=== PATIENT | female | born 1955 ===

== ENCOUNTER 2024-05-05 05:20 | Inpatient (IN) | payer OTHER ==
[2024-04-25 16:14] VITALS: BP 147/73
[~2024-05-05] VITALS: Ht 170.2 cm; Wt 93.0 kg
[2024-05-05] MEDS ORDERED: 0.9 % SODIUM CHLORIDE 1,000 ML IV SCH (10:45)
[2024-05-05] MEDS ORDERED: PROMETHAZINE HCL 50 MG/ML AMPUL IM PRN (10:45)
[2024-05-05] MEDS ORDERED: ENALAPRILAT DIHYDRATE 1.25 MG/ML VIAL IV PRN (10:45)
[2024-05-05] MEDS ORDERED: MEDROLPACK PO (11:04)
[2024-05-05] MEDS ORDERED: PERCOCET 5-3251 EACH PO (11:04)
[2024-05-05] MEDS ORDERED: AMOX-CLAV 875-1 EACH PO (11:05)
[2024-05-05] MEDS ORDERED: GABAPENTIN100 M2 PO (11:05)
[2024-05-05] MEDS ORDERED: NEURONTIN800 MG PO (11:05)
[2024-05-05] MEDS ORDERED: CEFAZOLIN SODIUM 2,000 MG in 0.9 % SODIUM CHLORIDE 100 ML IV ONE (12:30)
[2024-05-05] MEDS ORDERED: METHYLPREDNISOLONE SOD SUCC 125 MG VIAL IV ONE ×2 (12:30)
[2024-05-05] MEDS ORDERED: METHYLPREDNISOLONE ACETATE 80 MG/ML VIAL IU ONE ×2 (12:30)
[2024-05-05] MEDS ORDERED: VANCOMYCIN HCL 1,000 MG VIAL IR ONE (12:30)
[2024-05-05] MEDS ORDERED: TRANEXAMIC ACID 1,000 MG in 0.9 % SODIUM CHLORIDE 100 ML IV ONE (12:30)
[2024-05-05] MEDS ORDERED: VANCOMYCIN HCL 1,000 MG in 0.9 % SODIUM CHLORIDE 250 ML IV ONE (12:30)
[2024-05-05] MEDS ORDERED: DOCUSATE SODIUM 100MG CAP PO SCH (13:00)
[2024-05-05] MEDS ORDERED: MORPHINE SULFATE 4 MG/ML VIAL IV SCH (13:00)
[2024-05-05] MEDS ORDERED: MORPHINE SULFATE 4 MG/ML VIAL IV ONE ×2 (14:00→14:45)
[2024-05-05] MEDS ORDERED: CEFAZOLIN SODIUM 1,000 MG in 0.9 % SODIUM CHLORIDE 50 ML IV SCH (17:00)
[2024-05-05] MEDS ORDERED: FAMOtidine 20 MG TABLET PO SCH (17:00)
[2024-05-05] MEDS ORDERED: METHYLPREDNISOLONE SOD SUCC 125 MG VIAL IV SCH (17:00)
[2024-05-05 17:53] VITALS: BP 147/73; O2SAT 96
[2024-05-05 20:00] VITALS: BP 143/77; O2SAT 99
[2024-05-05] MEDS ORDERED: AMLODIPINE BESYLATE 2.5 MG TABLET PO SCH (21:00)
[2024-05-05] MEDS ORDERED: GABAPENTIN 800 MG TABLET PO SCH (21:00)
[2024-05-05] MEDS ORDERED: VANCOMYCIN HCL 1,000 MG in 0.9 % SODIUM CHLORIDE 250 ML IV SCH (21:00)
[2024-05-06] VITALS: BP 138/71; O2SAT 99
[2024-05-06] MEDS ORDERED: SODIUM CHLORIDE 0.45 % 1,000 ML IV SCH
[2024-05-06 04:00] VITALS: BP 140/74; O2SAT 98
[2024-05-06] MEDS ORDERED: OxyCODONE HCL/APAP UD (PERCOCET) PO PRN (06:01)
[2024-05-06 06:33] LABS: HEMATOCRIT 33.1 % (36.0-45.00); HEMOGLOBIN 11.5 g/dL (12.0-15.00); MEAN CORPUSCULAR HEMOGLOBIN 32.2 pg (27.00-32.0); MEAN CORPUSCULAR HGB CONC 34.6 g/dl (32.0-36.0); PLATELET COUNT 244 K/uL (150-450); RED BLOOD COUNT 3.56 M/uL (4.00-6.00); RED CELL DISTRIBUTION WIDTH 12.9 % (11.5-14.5)
[2024-05-06 07:19] LABS: CALCIUM 8.7 mg/dL (8.5-10.1); CREATININE SERUM 0.59 mg/dL (0.55-1.02); GFR 101.36; POTASSIUM 3.63 mEq/L (3.5-5.1)
[2024-05-06 08:41] VITALS: BP 123/75; O2SAT 98
[2024-05-06] MEDS ORDERED: METOPROLOL SUCCINATE 50 MG TAB.SR.24H PO SCH (09:00)
[2024-05-06] MEDS ORDERED: TAMSULOSIN HCL 0.4 MG CAP PO SCH (09:00)
[2024-05-06] MEDS ORDERED: METHYLPREDNISOLONE SOD SUCC 125 MG VIAL IV NR (11:18)
[2024-05-06 12:24] VITALS: BP 134/61; O2SAT 98
== END 2024-05-06 13:48 | disposition home or self-care (01) | DRG 455 ==
LOC: CIR.AMB 05:20 → O/R 15:21 → PED 15:45
PROVIDERS: ADMIT Orthopaedic Surgery Orthopaedic Surgery of the Spine; ATTEND Orthopaedic Surgery Orthopaedic Surgery of the Spine
PROC: 0SG1070 Fusion of 2 or more Lumbar Vertebral Joints with Autologous Tissue Substitute, Anterior Approach, Anterior Column, Open Approach (ICD-10-PCS; 2024-05-05)
PROC: XRGC0R7 Fusion of 2 or more Lumbar Vertebral Joints using Custom-Made Anatomically Designed Interbody Fusion Device, Open Approach, New Technology Group 7 (ICD-10-PCS; 2024-05-05)
PROC: 0ST20ZZ Resection of Lumbar Vertebral Disc, Open Approach (ICD-10-PCS; 2024-05-05)
PROC: 0QB30ZZ Excision of Left Pelvic Bone, Open Approach (ICD-10-PCS; 2024-05-05)
PROC: 07DR0ZZ Extraction of Iliac Bone Marrow, Open Approach (ICD-10-PCS; 2024-05-05)
PROC: 4A1104G Monitoring of Peripheral Nervous Electrical Activity, Intraoperative, Open Approach (ICD-10-PCS; 2024-05-05)
PROC: 0SG10K1 Fusion of 2 or more Lumbar Vertebral Joints with Nonautologous Tissue Substitute, Posterior Approach, Posterior Column, Open Approach (ICD-10-PCS; principal; 2024-05-05 13:30)
DX: M51.36 Other intervertebral disc degeneration, lumbar region (principal); M43.16 Spondylolisthesis, lumbar region; M48.062 Spinal stenosis, lumbar region with neurogenic claudication; M43.6 Torticollis; I10 Essential (primary) hypertension

== ENCOUNTER 2024-05-15 09:42 | Emergency (ER) | payer OTHER ==
[~2024-05-15] VITALS: Ht 175.3 cm; Wt 93.0 kg
[~2024-05-15 09:42] MED LIST: AMOX-CLAV 875-1 EACH PO; GABAPENTIN100 M2 PO; MEDROLPACK PO; NEURONTIN800 MG PO; PERCOCET 5-3251 EACH PO
[2024-05-15] MEDS ORDERED: NORVASC5 MG (09:48)
[2024-05-15] MEDS ORDERED: DIOVAN HCT 1601 EAC1 (09:49)
[2024-05-15] MEDS ORDERED: TOPROL XL50 M1 (09:49)
[2024-05-15] MEDS ORDERED: ADULT LOW DOSE81 M1 (09:50)
[2024-05-15] MEDS ORDERED: KETOROLAC TROMETHAMINE 30 MG VIAL IV ONE (10:00)
[2024-05-15] MEDS ORDERED: LORazepam 1 MG TABLET PO ONE (10:00)
== END 2024-05-15 12:05 | disposition home or self-care (01) ==
LOC: ER 09:42
DX: R51.9 Headache, unspecified (principal); I10 Essential (primary) hypertension; Z91.013 Allergy to seafood
CPT/HCPCS: 70450; 96365; 99284; J1885